=== PATIENT | female | born 1945 | race African-American/Black ===

== ENCOUNTER 2017-08-13 11:15 | Emergency (ER) | payer MEDICARE, OTHER ==
[~2017-08-13] VITALS: Ht 157.5 cm; Wt 83.5 kg
--- NOTE | 2017-08-13 11:23 | PHYS DOC ---
Adult General Chief Complaint Chief Complaint: COUGH HPI HPI Patient is a 72 year old -[place]izen [place] who presents with nonproductive cough. She states been on for couple weeks. Last night she had a little bit of phlegm production was clear. She's had intermittent headaches that Tylenol takes care of. She denies any nasal discharge, fevers chills, shortness of breath nausea or vomiting. She denies any chest pain states that she coughs really hard it hurts a little bit otherwise it doesn't hurt. She has a follow-up appointment 2 days. Review of Systems Review of Systems Constitutional: Denies fever or chills [] Eyes: Denies change in visual acuity, redness, or eye pain [] HENT: Denies nasal congestion or sore throat [] Respiratory: Positive for cough, Denies shortness of breath [] Cardiovascular: No additional information not addressed in HPI [] GI: Denies abdominal pain, nausea, vomiting, bloody stools or diarrhea [] : Denies dysuria or hematuria [] Musculoskeletal: Denies back pain or joint pain [] Integument: Denies rash or skin lesions [] Neurologic: Denies headache, focal weakness or sensory changes [] Endocrine: Denies polyuria or polydipsia [] All other systems were reviewed and found to be within normal limits, except as documented in this note. Allergies Allergies Allergies Coded Allergies Type Severity Reaction Last Updated Verified No Known Drug Allergies 08/13/17 No Physical Exam Physical Exam Constitutional: Well developed, well nourished, no acute distress, non-toxic appearance. [] HENT: Normocephalic, atraumatic, bilateral external ears normal, oropharynx moist, no oral exudates, nose normal. [] Eyes: PERRLA, EOMI, conjunctiva normal, no discharge. [] Neck: Normal range of motion, no tenderness, supple, no stridor. [] Cardiovascular:Heart rate regular rhythm, no murmur [] Lungs & Thorax: Bilateral breath sounds clear to auscultation [] Abdomen: Bowel sounds normal, soft, no tenderness, no masses, no pulsatile masses. [] Skin: Warm, dry, no erythema, no rash. [] Back: No tenderness, no CVA tenderness. [] Extremities: No tenderness, no cyanosis, no clubbing, ROM intact, no edema. [] Neurologic: Alert and oriented X 3, normal motor function, normal sensory function, no focal deficits noted. [] Psychologic: Affect normal, judgement normal, mood normal. [] Current Patient Data Vital Signs Vital Signs Date Time Temp Pulse Resp B/P (MAP) Pulse Ox O2 Delivery O2 Flow Rate FiO2 08/13/17 11:26 87 18 168/78 (108) 97 Room Air 08/13/17 11:23 98.3 98.3 EKG EKG [] Radiology/Procedures Radiology/Procedures [facility] [address] [place] [address] IMAGING REPORT Signed PATIENT: SULY HOOKS ACCOUNT: [id number] : 1945 LOCATION: ER AGE: 72 SEX: F EXAM STATUS: REG ER ORD. PHYSICIAN: HILARY LIAO MD REASON: fever, cough PROCEDURE: CHEST PA & LATERAL CHEST PA LATERAL Clinical Indication: fever, cough Comparison: March 28, 2008 Technique: Frontal and lateral views of the chest are obtained. Findings: No focal consolidation, pleural effusion or pneumothorax is seen. Cardiomediastinal silhouette remains within normal limits of size. Visualized osseous structures and overlying soft tissues demonstrate no acute interval change. IMPRESSION: No focal consolidation or acute radiographic finding. DICTATED and SIGNED BY: ELIUD LUNA MD DATE: 08/13/17 1305 CC: MARYELLEN ALVAREZ MD; HILARY LIAO MD ~ Impressions: Cough Course & Med Decision Making Course & Med Decision Making Pertinent Labs and Imaging studies reviewed. (See chart for details) Her vitals are stable, she doesn't have a fever, chest x-ray does not show any infiltrates. She is following up with her primary care physician in 2 days. Return precautions given for fevers, worsening cough, shortness of breath, chest pain or other concerns. She is agreeable to the plan and being discharged in stable condition this time. Dragon Disclaimer Dragon Disclaimer This electronic medical record was generated, in whole or in part, using a voice recognition dictation system. Departure Departure Impression: Primary Impression: Cough Disposition: 01 HOME, SELF-CARE Condition: STABLE Referrals: MARYELLEN ALVAREZ MD (PCP) Patient Instructions: Cough, Adult, [id number] Additional Instructions: Your vitals and chest x-ray did not show the you have any infection or pneumonia. Your being discharged home. Please follow-up with primary care physician within the next 2 days. If you develop high fevers, shortness of breath, chest pain, confusion or other concerns please return back to the ER. HILARY LIAO MD Aug 13, 2017 11:23
--- NOTE | 2017-08-13 13:11 | RAD ---
CHEST PA LATERAL Clinical Indication: fever, cough Comparison: March 28, 2008 Technique: Frontal and lateral views of the chest are obtained. Findings: No focal consolidation, pleural effusion or pneumothorax is seen. Cardiomediastinal silhouette remains within normal limits of size. Visualized osseous structures and overlying soft tissues demonstrate no acute interval change. IMPRESSION: No focal consolidation or acute radiographic finding.
[2017-08-13 13:37] VITALS: BP 159/77
== END 2017-08-13 13:40 | disposition home or self-care (01) ==
LOC: ER 11:15
DX: R05 Cough (principal)
CPT/HCPCS: 71020; 99284